=== PATIENT | male | born 1960 ===

== ENCOUNTER 2016-10-06 12:50 | Emergency (ER) | payer MEDICAID ==
[2016-10-06 12:50] VITALS: BMI 34.2
[2016-10-06 12:58] VITALS: O2SAT 97
[2016-10-06 13:41] LABS: BASO % 0.7 % (0.0-2.0); EOS # 0.2 K/uL (0.0-0.7); EOS % 4.9 % (0.0-4.0); LYMPH % 43.2 % (20.0-40.0); MEAN CORPUSCULAR HEMOGLOBIN 32.7 pg (27.0-31.0); MEAN CORPUSCULAR HGB CONC 33.7 g/dL (33.0-37.0); MONO # 0.4 K/uL (0.0-0.8); MONO % 8.5 % (0.0-10.0); NRBC % 0.1 % (0.0-2.0); RED CELL DISTRIBUTION WIDTH 15.6 % (11.5-14.5); WHITE BLOOD COUNT 4.7 K/uL (4.8-10.8)
[2016-10-06 13:46] LABS: MEAN CELL VOLUME 96.9 fL (80.0-94.0)
[2016-10-06 13:47] LABS: CHLORIDE 103 mmol/L (98-107); SODIUM 139 mmol/L (132-148)
[2016-10-06 13:49] LABS: GFR AFRICAN-AMERICAN > 60
[2016-10-06 13:50] LABS: ALB/GLOB RATIO 1.2 (1.0-2.1); ALKALINE PHOSPHATASE 59 U/L (38-126); ALT/SGPT 28 U/L (21-72); AST/SGOT 23 U/L (17-59); BILIRUBIN,TOTAL 0.3 mg/dL (0.2-1.3); BLOOD UREA NITROGEN 26 mg/dL (9-20); CARBON DIOXIDE 23 mmol/L (22-30); GLUCOSE,RANDOM 221 mg/dL (75-110)
[2016-10-06 13:50] LABS: RBC URINE 1 /hpf (0-3); URINE BILIRUBIN NEGATIVE (NEGATIVE); URINE BLOOD NEGATIVE (NEGATIVE); URINE COLOR Yellow (YELLOW); URINE GLUCOSE (UA) 1+ mg/dL (Normal); URINE KETONE NEGATIVE (NEGATIVE); URINE LEUKOCYTE ESTERASE NEG Leu/uL (Negative); URINE PROTEIN NEGATIVE (NEGATIVE); URINE UROBILINOGEN NORMAL mg/dL (0.2-1.0); WBC URINE 1 /hpf (0-5)
[2016-10-06 13:51] LABS: INR 1.1
--- NOTE | 2016-10-06 14:17 | C.PDOC ---
History Of Present Illness Pt was sent in by Dr. Autumn Ramos for admission in order to perform a Renal biopsy. Time Seen by Provider: 10/06/16 13:18 History Per: Patient Onset/Duration Of Symptoms: Unknown Current Symptoms Are (Timing): Still Present Severity: Moderate Reports Recently: Treated By A Physician Additional History Per: Prior Records Past Medical History Reviewed: Historical Data, Nursing Documentation, Vital Signs Vital Signs: Last Vital Signs Temp 97.8 F 10/06/16 12:53 Pulse 103 H 10/06/16 12:53 Resp 18 10/06/16 12:53 BP 119/72 10/06/16 12:53 Pulse Ox 97 10/06/16 12:53 - Medical History PMH: Bronchitis, CAD, Diabetes, HIV, HTN, TIA Surgical History: CABG (x 1 stent), Coronary Stent - [facility] Procedures DILATION OF 1 COR ART WITH DRUG-ELUT INTRALUM, PERC APPROACH (09/05/15) EXCISION OF LEFT LOWER ARM SKIN, EXTERNAL APPROACH, DIAGN (06/20/16) FLUOROSCOPY OF LEFT HEART USING LOW OSMOLAR CONTRAST (09/05/15) MEASURE OF CARDIAC SAMPL & PRESSURE, L HEART, PERC APPROACH (09/05/15) NEBULIZER THERAPY (02/07/13) Family History: States: Unknown Family Hx - Social History Hx Tobacco Use: Yes Hx Alcohol Use: No Hx Substance Use: No - Immunization History Hx Tetanus Toxoid Vaccination: No Hx Influenza Vaccination: Yes Hx Pneumococcal Vaccination: No Review Of Systems Except As Marked, All Systems Reviewed And Found Negative. Constitutional: Negative for: Fever, Weakness Cardiovascular: Negative for: Chest Pain Respiratory: Negative for: Shortness of Breath Gastrointestinal: Negative for: Vomiting, Abdominal Pain Genitourinary: Positive for: Frequency. Negative for: Dysuria Musculoskeletal: Negative for: Neck Pain, Back Pain Skin: Negative for: Rash Neurological: Negative for: Weakness, Numbness, Seizures, Altered Mental Status Physical Exam - Physical Exam Appears: Non-toxic, No Acute Distress Skin: Normal Color, Warm, Dry Head: Atraumatic, Normacephalic Eye(s): bilateral: PERRL, EOMI Neck: Normal ROM, Supple Cardiovascular: Rhythm Regular Respiratory: Normal Breath Sounds, No Accessory Muscle Use Gastrointestinal/Abdominal: Soft, No Tenderness Back: No CVA Tenderness Extremity: Normal ROM, No Pedal Edema, No Calf Tenderness Neurological/Psych: Oriented x3, Normal Motor, Normal Sensation ED Course And Treatment - Laboratory Results Result Diagrams: 10/06/16 13:37 10/06/16 13:37 O2 Sat by Pulse Oximetry: 97 Pulse Ox Interpretation: Normal Disposition Discussed With DrGail: Ericka Ramos Comment: He accepted pt on his service. Doctor Will See Patient In The: Hospital Counseled Patient/Family Regarding: Studies Performed, Diagnosis - Disposition Disposition: HOSPITALIZED Disposition Time: 14:19 Condition: STABLE - Clinical Impression Clinical Impression: Kidney disease
[2016-10-06 16:09] VITALS: BP 115/76; PULSE 92; RESP 20; TEMP 98.1
== END 2016-10-06 16:10 | disposition home or self-care (01) ==
LOC: C.ER 12:50
DX: N28.9 Disorder of kidney and ureter, unspecified (principal)

== ENCOUNTER 2016-10-12 15:27 | Emergency (ER) | payer MEDICAID ==
[2016-10-12 15:34] VITALS: BMI 35.3
[2016-10-12 15:36] VITALS: PULSE 92
--- NOTE | 2016-10-12 17:07 | C.PDOC ---
History Of Present Illness 55 y/o male sent to ED by PMD for admission for renal biopsy. Pt arrives with prescription from Shira Ramos to come to ED dated last week. Pt saw urologist Chirag today who states patient doesn't need renal biopsy. Pt has no complaints at this time. Chief Complaint (Nursing): Male Genitourinary History Per: Patient History/Exam Limitations: no limitations Severity: None Recent travel outside of the [place]: No Past Medical History Reviewed: Historical Data, Nursing Documentation, Vital Signs Vital Signs: Last Vital Signs Temp 98.0 F 10/12/16 17:15 Pulse 92 H 10/12/16 17:15 Resp 18 10/12/16 17:15 BP 129/81 10/12/16 17:15 Pulse Ox 98 10/12/16 17:20 - Medical History PMH: Bronchitis, CAD, Diabetes, HIV, HTN, TIA Surgical History: CABG (x 1 stent), Coronary Stent - [facility] Procedures DILATION OF 1 COR ART WITH DRUG-ELUT INTRALUM, PERC APPROACH (09/05/15) EXCISION OF LEFT LOWER ARM SKIN, EXTERNAL APPROACH, DIAGN (06/20/16) FLUOROSCOPY OF LEFT HEART USING LOW OSMOLAR CONTRAST (09/05/15) MEASURE OF CARDIAC SAMPL & PRESSURE, L HEART, PERC APPROACH (09/05/15) NEBULIZER THERAPY (02/07/13) Family History: States: Unknown Family Hx - Social History Hx Tobacco Use: Yes Hx Alcohol Use: No Hx Substance Use: No - Immunization History Hx Tetanus Toxoid Vaccination: No Hx Influenza Vaccination: Yes Hx Pneumococcal Vaccination: No Review Of Systems Except As Marked, All Systems Reviewed And Found Negative. Constitutional: Negative for: Fever Cardiovascular: Negative for: Chest Pain Respiratory: Negative for: Shortness of Breath Gastrointestinal: Negative for: Vomiting Musculoskeletal: Negative for: Back Pain Physical Exam - Physical Exam Appears: Non-toxic, No Acute Distress Skin: Warm, Dry, No Rash Head: Atraumatic, Normacephalic Chest: Symmetrical Cardiovascular: Rhythm Regular, No Murmur Respiratory: Normal Breath Sounds, No Rales, No Rhonchi, No Wheezing Extremity: Bilateral: Atraumatic Neurological/Psych: Oriented x3 ED Course And Treatment O2 Sat by Pulse Oximetry: 98 (on room air) Pulse Ox Interpretation: Normal Medical Decision Making Medical Decision Making: Spoke to urologist Chirag and PMRenay Ramos; confirm patient does not need admission. Disposition - Disposition Referrals: [facility] Alex Lopez, [Non-Staff] - Disposition: HOME/ ROUTINE Disposition Time: 17:00 Condition: GOOD Additional Instructions: Thank you for letting us take care of you today. Your provider was Dr. Klein. You were treated for renal cyst. The emergency medical care you received today was directed at your acute symptoms. If you were prescribed any medication, please fill it and take as directed. It may take several days for your symptoms to resolve. Return to the Emergency Department if your symptoms worsen, do not improve, or if you have any other problems. Please contact your doctor or call one of the physicians/clinics you have been referred to that are listed on the Patient Visit Information form that is included in your discharge packet. Bring any paperwork you were given at discharge with you along with any medications you are taking to your follow up visit. Our treatment cannot replace ongoing medical care by a primary care provider (PCP) outside of the emergency department. Thank you for allowing the [facility] team to be part of your care today. Follow up with your urologist as already scheduled. Instructions: Kidney Cyst (ED) - Clinical Impression Clinical Impression: Renal cyst - Scribe Statement The provider has reviewed the documentation as recorded by the Mckay Sinclair Provider Attestation: All medical record entries made by the Mckay were at my direction and personally dictated by me. I have reviewed the chart and agree that the record accurately reflects my personal performance of the history, physical exam, medical decision making, and the department course for this patient. I have also personally directed, reviewed, and agree with the discharge instructions and disposition.
[2016-10-12 17:17] VITALS: BP 129/81; RESP 18; TEMP 98
[2016-10-12 17:20] VITALS: O2SAT 98
== END 2016-10-12 17:15 | disposition home or self-care (01) ==
LOC: C.ER 15:27
DX: N28.1 Cyst of kidney, acquired (principal)